=== PATIENT | female | born 1975 | race Caucasian/White ===

== ENCOUNTER 2020-12-15 10:05 | Emergency (ER) | payer OTHER ==
[2020-12-15 10:35] LABS: EOSINOPHIL 5.6 % (0-5); HCT 42.4 % (37.0-47.0); HGB 13.9 g/dl (12.5-16.0); LYMPHOCYTE 31.8 % (15-48); MCH 29.1 pg (25.0-31.0); MCHC 32.8 g/dL (32.0-36.0); MCV 88.9 fL (78.0-100.0); MONOCYTE 7.1 % (0-12); MPV 9.9 fL (6.0-9.5); NEUTROPHIL 54.3 % (41-80); NRBC 0; PLT 324 K/uL (150-400); RBC 4.77 M/uL (4.20-5.40); RDW 13.1 % (11.5-14.0); WBC 4.8 K/uL (4.0-10.5)
[2020-12-15 10:39] LABS: INR 0.95 (0.9-1.2); PTT 24.4 SECONDS (22.2-34.7)
[2020-12-15 10:50] LABS: ALBUMIN 3.9 g/dL (3.4-5.0); BILIRUBIN - TOTAL 0.4 mg/dL (0.2-1.0); BUN/CREAT RATIO (CALC) 9.5 RATIO; CREATININE 0.84 mg/dL (0.51-0.95); GLOBULIN (CALCULATION) 2.9 g/dL; POTASSIUM 3.9 mmol/L (3.5-5.1); TOTAL PROTEIN 6.8 g/dL (6.4-8.2)
[2020-12-15] MEDS ORDERED: CARAFATE S500 MG/TSP PO (14:40)
[2020-12-15] MEDS ORDERED: NEXIUM20 MG PO (14:40)
== END 2020-12-15 15:03 | disposition home or self-care (01) ==
LOC: FER 10:05
PROVIDERS: Emergency Medicine
DX: R07.89 Other chest pain (principal); R53.1 Weakness
CPT/HCPCS: 36415; 71045; 80053; 83690; 84484; 85025; 85610; 85730; J7030

== ENCOUNTER 2021-10-31 20:10 | Emergency (ER) | payer OTHER ==
[~2021-10-31 20:10] MED LIST: CARAFATE S500 MG/TSP PO; NEXIUM20 MG PO
[2021-10-31 21:35] LABS: BASOPHIL 0.9 % (0-2); HCT 43.8 % (37.0-47.0); HGB 14.6 g/dl (12.5-16.0); LYMPHOCYTE 24.2 % (15-48); MCH 29.3 pg (25.0-31.0); MCHC 33.3 g/dL (32.0-36.0); MCV 87.8 fL (78.0-100.0); MONOCYTE 7.3 % (0-12); NEUTROPHIL 64.2 % (41-80); NRBC 0; PLT 309 K/uL (150-400); RBC 4.99 M/uL (4.20-5.40); RDW 13.8 % (11.5-14.0); WBC 9.1 K/uL (4.0-10.5)
[2021-10-31 21:55] LABS: BUN/CREAT RATIO (CALC) 15.4 RATIO; CREATININE 0.65 mg/dL (0.51-0.95)
[2021-11-01 00:38] LABS: POTASSIUM 4.2 mmol/L (3.5-5.1)
[2021-11-01] MEDS ORDERED: ATIVAN0.5 MG PO (01:42)
[2021-11-01] MEDS ORDERED: ATARAX25 MG PO (01:42)
[2021-11-02] MEDS ORDERED: SYNTHROID75 MCG PO (14:24)
[2021-11-02] MEDS ORDERED: ASHWAGANDHA RO300 MG PO (14:25)
[2021-11-02] MEDS ORDERED: PROBIOTIC1 EAC1 PO (14:25)
[2021-11-02] MEDS ORDERED: LASIX20 MG PO (14:25)
[2021-11-02] MEDS ORDERED: VITAMIN D350 MC3 PO (14:25)
== END 2021-11-01 02:30 | disposition home or self-care (01) ==
LOC: FER 20:10
PROVIDERS: Emergency Medicine Emergency Medical Services
DX: R07.89 Other chest pain (principal); R20.2 Paresthesia of skin; E07.9 Disorder of thyroid, unspecified; Z88.2 Allergy status to sulfonamides; Z79.890 Hormone replacement therapy
CPT/HCPCS: 36415; 71045; 72050; 80048; 84439; 84443; 84484; 85025; 93005; J2060

== ENCOUNTER → 2021-11-09 | Day surgery (SDC) | payer OTHER ==
[~2021-11-09] VITALS: Ht 152.4 cm; Wt 97.5 kg
[~2021-11-09] MED LIST changes: +ASHWAGANDHA RO300 MG PO; +ATARAX25 MG PO; +ATIVAN0.5 MG PO; +CELEXA10 MG PO; +LASIX20 MG PO; +PRAVACHOL20 MG PO; +PROBIOTIC1 EAC1 PO; +SYNTHROID75 MCG PO; +ULTRAM50 MG PO; +VITAMIN D350 MC3 PO
[2021-11-09 09:55] LABS: BUN/CREAT RATIO (CALC) 11.1 RATIO; CREATININE 0.81 mg/dL (0.51-0.95); POTASSIUM 3.7 mmol/L (3.5-5.1)
== END | disposition home or self-care (01) ==
LOC: FAS 07:57
PROVIDERS: Anesthesiology
DX: N60.32 Fibrosclerosis of left breast (principal); I10 Essential (primary) hypertension; E03.9 Hypothyroidism, unspecified; Z90.710 Acquired absence of both cervix and uterus; Z88.2 Allergy status to sulfonamides; Z98.51 Tubal ligation status; Z72.89 Other problems related to lifestyle
CPT/HCPCS: 36415; 80048; 84443; J2250; J2704; J3010; J7120